=== PATIENT | female | born 1955 | race Caucasian/White ===

== ENCOUNTER 2018-10-15 07:35 | Day surgery (SDC) | payer OTHER | END 2018-10-15 15:10 | disposition home or self-care (01) | LOC: AMB-ENDOS 07:35 | DX: C20 Malignant neoplasm of rectum (principal) ==

== ENCOUNTER 2019-03-22 10:27 | Outpatient (CLI) | payer OTHER | END 2019-03-22 11:12 | disposition home or self-care (01) | LOC: LAB 10:27 | DX: C20 Malignant neoplasm of rectum (principal) ==

== ENCOUNTER 2019-03-25 14:39 | Outpatient (CLI) | payer OTHER | END 2019-03-25 15:46 | disposition home or self-care (01) | LOC: LAB 14:39 | DX: C55 Malignant neoplasm of uterus, part unspecified (principal); Z51.81 Encounter for therapeutic drug level monitoring ==

== ENCOUNTER 2019-03-29 08:20 | Outpatient (CLI) | payer OTHER | END 2019-03-29 08:28 | disposition home or self-care (01) | LOC: MRI 08:20 | DX: C55 Malignant neoplasm of uterus, part unspecified (principal) | CPT/HCPCS: 72196 ==

== ENCOUNTER 2019-03-30 10:38 | Inpatient (IN) | payer OTHER ==
[~2019-03-30] VITALS: Ht 154.9 cm; Wt 63.0 kg
[2019-04-26] MEDS ORDERED: ATENOLOL25 MG PO (13:24)
[2019-04-26] MEDS ORDERED: TARKA ER 2-2401 EACH PO (13:24)
[2019-04-26] MEDS ORDERED: PROTECT CARDIO1 EAC1 PO (13:25)
== END 2019-04-29 19:07 | disposition expired | DRG 748 ==
LOC: LAB 10:38 → ADM 04-27 07:15 → EDSTATUS 04-27 07:15 → O/R 04-28 06:42 → OB/GYN 04-28 13:31 → SURH 04-28 14:07
PROVIDERS: ADMIT Obstetrics & Gynecology Gynecologic Oncology
PROC: 0DBW0ZZ Excision of Peritoneum, Open Approach (ICD-10-PCS; 2019-04-28)
PROC: 0UTG0ZZ Resection of Vagina, Open Approach (ICD-10-PCS; principal; 2019-04-28 11:30)
DX: C52 Malignant neoplasm of vagina (principal); C78.6 Secondary malignant neoplasm of retroperitoneum and peritoneum; I97.121 Postprocedural cardiac arrest following other surgery

== ENCOUNTER 2019-04-08 09:04 | Outpatient (CLI) | payer OTHER | END 2019-04-08 09:22 | disposition home or self-care (01) | LOC: NUCLEAR 09:04 | DX: C21.8 Malignant neoplasm of overlapping sites of rectum, anus and anal canal (principal) | CPT/HCPCS: 78815; A9552 ==